=== PATIENT | female | born 1995 | race Caucasian/White ===

== ENCOUNTER 2017-03-03 11:28 | Day surgery (SDC) | payer BC ==
[~2017-03-03] VITALS: Ht 162.6 cm; Wt 73.8 kg
[2017-03-03 13:03] VITALS: Ht 162.6 cm; Wt 73.8 kg
[2017-03-03 13:40] VITALS: BP 109/69; PULSE 79; RESP 16
[2017-03-03] MEDS ORDERED: PROPOFOL 20 ML ONE (13:55)
[2017-03-03] MEDS ORDERED: FENTAnyl 50 MCG/ML VIAL ONE (13:56)
[2017-03-03 14:55] VITALS: BP 110/60; PULSE 72; RESP 12
--- NOTE | 2017-03-03 15:30 | GILP ---
DATE OF PROCEDURE: 03/03/2017 NAME OF PROCEDURES: Esophagogastroduodenoscopy and biopsy. SURGEON: Shanelle Logan MD PREOPERATIVE DIAGNOSES: 1. Abdominal pain. 2. Chronic heartburn. POSTOPERATIVE DIAGNOSES: 1. Gastroesophageal reflux disease. 2. Gastritis. 3. Gastric mucosal biopsies were taken for Helicobacter pylori test. 4. Small bowel biopsies were taken to rule out celiac disease. INDICATION FOR THE PROCEDURE: Ms. Cari Valle is a 21-year-old female patient who had upper abdo deemtrice pain and chronic heartburn, not responding to therapy. The patient was scheduled for endoscop ic examination for further evaluation. The procedure and possible complications were well explained to the patient. She understood and con sented to the procedure. DESCRIPTION OF PROCEDURE: Under the influence of anesthesia, the gastroscope was carefully introduc ed into the esophagus, and under direct vision, it was advanced to the stomach and through the pylor us into the duodenal bulb and descending duodenum. FINDINGS: ESOPHAGUS: The patient had gastroesophageal reflux disease. STOMACH: She had gastritis with erosions. Gastric mucosal biopsies were taken for H. pylori test. DUODENUM: Normal. Small bowel biopsies were taken to rule out celiac disease. She tolerated the procedure very well, and there was no complication from the procedure. At the end of the procedure, she was awake with stable vital signs, and she was discharged home to the care of her family. IMPRESSION: 1. Gastritis with erosions. 2. Gastric mucosal biopsies were taken for Helicobacter pylori test. 3. Gastroesophageal reflux disease. 4. Small bowel biopsies were taken to rule out celiac disease. PLAN: 1. Nexium 24 hours p.o. q. a.m. 2. MiraLax 17 grams dissolved in a glass of water p.o. daily for constipation. 3. Await histopathology reports. Dictated By: SHANELLE LUEVANO/NANO Conf#: [id number] DID#: [id number]
== END 2017-03-03 18:24 | disposition home or self-care (01) ==
LOC: GIL 11:28
PROVIDERS: ATTEND Internal Medicine Gastroenterology
DX: K21.9 Gastro-esophageal reflux disease without esophagitis (principal); K29.70 Gastritis, unspecified, without bleeding
CPT/HCPCS: 43239; 84702; 87081; 88305; J3010; Z7610